=== PATIENT | male | born 1955 | race Caucasian/White ===

== ENCOUNTER 2018-07-24 18:23 | Emergency (ER) | payer SELFPAY ==
[~2018-07-24] VITALS: Ht 172.7 cm; Wt 78.2 kg
[2018-07-24 18:26] VITALS: Ht 172.7 cm; Wt 78.2 kg
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
[2018-07-24] MEDS ORDERED: SILV20CR12 TOP (18:42)
[2018-07-24] MEDS ORDERED: CEPH500C PO (18:42)
[2018-07-24] MEDS: DIPHTH/TET/ACEL PERTUSS (ADULT) 0.5 ML VIAL IM* ONE ×2 (18:45→18:54)
[2018-07-24] MEDS ORDERED: SILVER SULFADIAZINE 1% 25 GM CR TOP ONE (19:00)
== END 2018-07-24 19:03 | disposition home or self-care (01) ==
LOC: FTE 18:23
DX: T22.232A Burn of second degree of left upper arm, initial encounter (principal); X12.XXXA Contact with other hot fluids, initial encounter; Y92.9 Unspecified place or not applicable
CPT/HCPCS: 90715